=== PATIENT | male | born 1985 | race Caucasian/White ===

== ENCOUNTER 2024-07-29 05:56 | Emergency (ER) | payer OTHER ==
[~2024-07-29] VITALS: Ht 203.2 cm; Wt 130.0 kg
[2024-07-29] MEDS ORDERED: DEXTROAMP-AMPHE20 MG PO (06:06)
[2024-07-29] MEDS ORDERED: IBUPROFEN 800 MG TAB PO ONE (06:30)
[2024-07-29 07:05] VITALS: BP 140/86
== END 2024-07-29 07:07 | disposition home or self-care (01) ==
LOC: ED 05:56
DX: S46.912A Strain of unspecified muscle, fascia and tendon at shoulder and upper arm level, left arm, initial encounter (principal); Z79.899 Other long term (current) drug therapy; X50.0XXA Overexertion from strenuous movement or load, initial encounter
CPT/HCPCS: 73080; 99283; A9270